=== PATIENT | male | born 1945 | race African-American/Black ===

== ENCOUNTER 2019-06-05 14:12 | Inpatient (IN) ==
[2019-06-05] MEDS ORDERED: SODIUM CHLORIDE 0.9% 500 ML IV STA (14:46)
[2019-06-05 15:01] LABS: Basophils # 0.1 10*3/uL (0.0-0.2); Basophils % 1.2 % (0.0-0.8); Eosinophils # 0.1 10*3/uL (0.0-0.87); Eosinophils % 1.6 % (0.00-10.9); Hematocrit 41.4 VOL% (42.0-52.0); Hemoglobin 13.4 GM/DL (14.0-18.0); Immature Granulocytes % 0.9 %; Immature Granulocytes Absolute 0.04 #; Lymphocytes # 1.2 10*3/uL (1.4-4.0); Lymphocytes % 27.8 % (21.2-54.2); Mean Corpuscular HGB Conc 32.4 GM/DL (32-36); Mean Corpuscular Volume 97.2 FL (87-102); Mean Platelet Volume 11.4 FL (9.6-12.0); Monocytes % 10.5 % (1.7-12.7); Platelet Count 117 T/CUMM (130-400); Red Blood Count 4.26 MC/CUMM (3.8-5.5); Red Cell Distribution Width 12.2 % (9.3-17.3); White Blood Count 4.3 T/CUMM (4-12)
[2019-06-05 15:14] LABS: Albumin 3.4 G/DL (3.4-5.0); Bilirubin,Total 0.4 MG/DL (0.2-1.0); Calcium 8.4 MG/DL (8.5-10.1); Osmolality,Calculated 287.8 MOS/KG (273-304); Total Protein 6.1 G/DL (6.4-8.3)
[2019-06-05 15:22] LABS: PT Patient Result 10.9 SECS
[2019-06-05] MEDS ORDERED: PANTOPRAZOLE 40 MG VIAL IV STA (16:24)
[2019-06-05] MEDS ORDERED: PANTOPRAZOLE 40 MG VIAL IV ONE (16:26)
[2019-06-05] MEDS ORDERED: ONDANSETRON 4 MG/2 ML VIAL IV PRN (17:35)
[2019-06-05 17:48] LABS: Hematocrit 40.8 VOL% (42.0-52.0); Hemoglobin 13.1 GM/DL (14.0-18.0)
[2019-06-05] MEDS: LACTATED RINGERS 1,000 ML IV SCH (18:06)
[2019-06-05] MEDS: PANTOPRAZOLE 40 MG VIAL IV SCH (20:47)
[2019-06-05] MEDS: SIMVASTATIN 10 MG TABLET PO SCH (20:47)
[2019-06-05] MEDS: CETIRIZINE 10 MG TABLET PO SCH (20:47)
[2019-06-05] MEDS: FLUTICASONE 50 MCG NASAL SPRAY 16 GM BOTTLE BOTH NARES SCH (20:48)
[2019-06-05 23:07] LABS: Hematocrit 36.3 VOL% (42.0-52.0); Hemoglobin 11.6 GM/DL (14.0-18.0)
[2019-06-05] MEDS: ACETAMINOPHEN 325 MG TABLET PO PRN (23:53)
[2019-06-06 04:51] LABS: Hematocrit 33.2 VOL% (42.0-52.0); Hemoglobin 10.8 GM/DL (14.0-18.0)
[2019-06-06 05:20] LABS: Calcium 7.6 MG/DL (8.5-10.1); Osmolality,Calculated 285.7 MOS/KG (273-304)
[2019-06-06] MEDS: LACTATED RINGERS 1,000 ML IV SCH ×2 (05:54→17:30)
[2019-06-06] MEDS: PANTOPRAZOLE 40 MG VIAL IV SCH ×2 (09:12→20:39)
[2019-06-06] MEDS: FLUTICASONE 50 MCG NASAL SPRAY 16 GM BOTTLE BOTH NARES SCH ×2 (09:12→20:38)
[2019-06-06 12:01] LABS: Hematocrit 33.6 VOL% (42.0-52.0); Hemoglobin 10.6 GM/DL (14.0-18.0)
[2019-06-06 15:57] LABS: Hematocrit 32.2 VOL% (42.0-52.0); Hemoglobin 10.7 GM/DL (14.0-18.0)
[2019-06-06] MEDS: SIMVASTATIN 10 MG TABLET PO SCH (20:41)
[2019-06-06] MEDS: CETIRIZINE 10 MG TABLET PO SCH (20:41)
[2019-06-07] MEDS: ACETAMINOPHEN 325 MG TABLET PO PRN (03:36)
[2019-06-07 04:53] LABS: Basophils % 0.9 % (0.0-0.8); Eosinophils # 0.1 10*3/uL (0.0-0.87); Eosinophils % 4.1 % (0.00-10.9); Hematocrit 30.2 VOL% (42.0-52.0); Hemoglobin 9.9 GM/DL (14.0-18.0); Immature Granulocytes % 0.6 %; Immature Granulocytes Absolute 0.02 #; Lymphocytes % 32.5 % (21.2-54.2); Mean Corpuscular HGB Conc 32.8 GM/DL (32-36); Mean Corpuscular Volume 95.3 FL (87-102); Mean Platelet Volume 11.5 FL (9.6-12.0); Monocytes % 11.9 % (1.7-12.7); Platelet Count 105 T/CUMM (130-400); Red Blood Count 3.17 MC/CUMM (3.8-5.5); Red Cell Distribution Width 11.9 % (9.3-17.3); White Blood Count 3.2 T/CUMM (4-12)
[2019-06-07 05:24] LABS: Osmolality,Calculated 279.1 MOS/KG (273-304)
[2019-06-07] MEDS: LACTATED RINGERS 1,000 ML IV SCH ×2 (06:21→21:04)
[2019-06-07] MEDS: PANTOPRAZOLE 40 MG VIAL IV SCH ×2 (10:14→20:41)
[2019-06-07] MEDS: FLUTICASONE 50 MCG NASAL SPRAY 16 GM BOTTLE BOTH NARES SCH ×2 (10:15→20:40)
[2019-06-07 12:05] LABS: Hematocrit 31.9 VOL% (42.0-52.0); Hemoglobin 10.7 GM/DL (14.0-18.0)
[2019-06-07] MEDS: CETIRIZINE 10 MG TABLET PO SCH (20:40)
[2019-06-07] MEDS: SIMVASTATIN 10 MG TABLET PO SCH (20:41)
[2019-06-07 20:44] LABS: Hematocrit 29.5 VOL% (42.0-52.0); Hemoglobin 9.7 GM/DL (14.0-18.0)
[2019-06-08 05:48] LABS: Hematocrit 29.5 VOL% (42.0-52.0); Hemoglobin 9.8 GM/DL (14.0-18.0)
[2019-06-08] MEDS: ACETAMINOPHEN 325 MG TABLET PO PRN (08:24)
[2019-06-08] MEDS: PANTOPRAZOLE 40 MG VIAL IV SCH ×2 (08:25→20:58)
[2019-06-08] MEDS: FLUTICASONE 50 MCG NASAL SPRAY 16 GM BOTTLE BOTH NARES SCH ×2 (08:26→21:00)
[2019-06-08] MEDS: LACTATED RINGERS 1,000 ML IV SCH ×2 (08:27→21:00)
[2019-06-08] MEDS ORDERED: BISACODYL 5 MG TABLET PO ONE (12:00)
[2019-06-08 16:41] LABS: Hematocrit 32.9 VOL% (42.0-52.0); Hemoglobin 10.8 GM/DL (14.0-18.0)
[2019-06-08] MEDS ORDERED: POLYETHYLENE GLYCOL POWDER 255 GM BOTTLE PO ONE (18:00)
[2019-06-08] MEDS: SIMVASTATIN 10 MG TABLET PO SCH (20:59)
[2019-06-08] MEDS: CETIRIZINE 10 MG TABLET PO SCH (20:59)
[2019-06-09 05:30] LABS: Basophils % 1.2 % (0.0-0.8); Eosinophils # 0.2 10*3/uL (0.0-0.87); Eosinophils % 5.1 % (0.00-10.9); Hemoglobin 10.5 GM/DL (14.0-18.0); Immature Granulocytes % 0.3 %; Immature Granulocytes Absolute 0.01 #; Lymphocytes # 1.1 10*3/uL (1.4-4.0); Lymphocytes % 33.9 % (21.2-54.2); Mean Corpuscular HGB Conc 32.8 GM/DL (32-36); Mean Corpuscular Volume 95.8 FL (87-102); Mean Platelet Volume 11.8 FL (9.6-12.0); Monocytes % 12.8 % (1.7-12.7); Neutrophils % 46.7 % (38.7-73.9); Platelet Count 126 T/CUMM (130-400); Red Blood Count 3.34 MC/CUMM (3.8-5.5); White Blood Count 3.4 T/CUMM (4-12)
[2019-06-09] MEDS ORDERED: MAGNESIUM CITRATE 300 ML BOTTLE PO ONE (06:00)
[2019-06-09] MEDS ORDERED: LIDOCAINE 2% 5 ML VIAL ONE (09:00)
[2019-06-09] MEDS ORDERED: PROPOFOL 200 MG/20 ML VIAL IV ONE (09:00)
[2019-06-09] MEDS: ACETAMINOPHEN 325 MG TABLET PO PRN (10:16)
[2019-06-09] MEDS: PANTOPRAZOLE 40 MG VIAL IV SCH (10:19)
[2019-06-09] MEDS: FLUTICASONE 50 MCG NASAL SPRAY 16 GM BOTTLE BOTH NARES SCH (10:22)
[2019-06-09] MEDS: LACTATED RINGERS 1,000 ML IV SCH (11:44)
[2019-06-09 15:14] VITALS: BP 168/96
== END 2019-06-09 15:48 | disposition home or self-care (01) | DRG 379 ==
LOC: EDUNIT# → EDBD → N.3E 14:12 → N.ED 14:12 → N.EDINP 14:12 → N.3E 17:05 → SUATTDRO 06-07 11:22
PROVIDERS: ADMIT Internal Medicine; ATTEND Internal Medicine Geriatric Medicine